=== PATIENT | male | born 1970 | race Caucasian/White ===

== ENCOUNTER 2016-09-18 20:01 | Emergency (ER) | payer BC ==
[~2016-09-18] VITALS: Ht 175.3 cm; Wt 90.2 kg
[~2016-09-18 20:01] MED LIST: ADVIL200 MG; CIPRO500 MG PO; NOHOMEMEDS; NYQUIL D COLD295 ML; PERCOCET 5/31 TABLET PO; TORADOL10 MG PO; TYLENOL PM1 CAPLET
[2016-09-18 21:09] LABS: HEMATOCRIT 41.4 % (38.0-50.0); MCH 31.1 PG (29.0-34.0); MCHC 34.1 G/DL (30.0-36.0); MCV 91.2 FL (86-99); MEAN PLAT.VOLUME 8.8 uM^3 (9.0-12.4); PLATELET COUNT 285 K/uL (156-360); RBC DIS.WIDTH-CV 12.8 % (11.8-14.6); RBC DIS.WIDTH-SD 43.2 % (39-53); RED BLOOD COUNT 4.54 M/uL (4.00-5.50); WHITE BLOOD COUNT 11.1 K/uL (4.1-10.2)
[2016-09-18 21:23] LABS: CHLORIDE 102 mEq/L (99-109); POTASSIUM 4.5 mEq/L (3.7-5.4); SODIUM 137 mEq/L (136-147)
[2016-09-18 21:24] LABS: AMYLASE 58 IU/L (1-118)
[2016-09-18 21:25] LABS: GLUCOSE 108 mg/dL (70-99)
[2016-09-18 21:26] LABS: ANION GAP 7 MEQ/L (2-14)
[2016-09-18 21:27] LABS: TOTAL BILIRUBIN 0.2 mg/dL (0.0-1.0)
[2016-09-18 21:29] LABS: ALKALINE PHOSPHATASE 63 IU/L (3-129); GFR ESTIMATE (CALCULATED) 54 mL/min/
[2016-09-18 21:30] LABS: UREA NITROGEN (BUN) 19 mg/dL (9-23)
[2016-09-18 21:32] LABS: LIPASE 91 U/L (1.0-51.0)
[2016-09-18 21:36] LABS: ADD MIUA? NO; BILIRUBIN NEGATIVE; BLOOD NEGATIVE; COLOR YELLOW ((YELLOW)); GLUCOSE (STRIP) NEGATIVE; KETONES NEGATIVE; LEUKOCYTES NEGATIVE; NITRITE NEGATIVE; PROTEIN (STRIP) NEGATIVE; SPECIFIC GRAVITY 1.018 (1.000-1.030); UCUL ADDED? NO; UROBILINOGEN 0.2 MG/DL (0.2-1.0)
[2016-09-18] MEDS ORDERED: FLOMAX0.4 MG PO (22:53)
[2016-09-18] MEDS ORDERED: CIPRO500 MG PO (22:53)
[2016-09-18] MEDS ORDERED: PERCOCET 5/31 TABLET PO (22:53)
[2016-09-18 23:07] VITALS: BP 147/94
== END 2016-09-18 23:10 | disposition home or self-care (01) ==
LOC: EME 20:01
PROVIDERS: Physician Assistant
DX: N13.2 Hydronephrosis with renal and ureteral calculous obstruction (principal); R10.12 Left upper quadrant pain; F17.200 Nicotine dependence, unspecified, uncomplicated
CPT/HCPCS: 74176; 80053; 81003; 82150; 83690; 85027; 99281; 99284